=== PATIENT | male | born 1985 | race Two or more races ===

== ENCOUNTER 2019-01-09 10:29 | Outpatient (CLI) | payer BC ==
[2019-01-09] MEDS ORDERED: MELO15TA24 PO (11:00)
== END 2019-01-09 23:59 | disposition home or self-care (01) ==
LOC: STAR 10:29
PROVIDERS: ATTEND Orthopaedic Surgery
DX: Z02.9 Encounter for administrative examinations, unspecified (principal)

== ENCOUNTER 2019-01-24 06:26 | Day surgery (SDC) | payer BC ==
[~2019-01-24] VITALS: Ht 165.1 cm; Wt 87.0 kg
[~2019-01-24 06:26] MED LIST: MELO15TA24 PO
[2019-01-24] MEDS ORDERED: BUPIVACAINE/PF-EPI 0.5% 1:200K ONE (06:28)
[2019-01-24] MEDS ORDERED: LIDOCAINE 1%-EPI 1:100K, 30ML ONE (06:28)
[2019-01-24 06:45] VITALS: BP 134/87
[2019-01-24] MEDS ORDERED: LACTATED RINGERS 1,000 ML IV SCH (06:47)
[2019-01-24] MEDS ORDERED: MIDAZOLAM 1 MG/ML, 2ML ONE (06:58)
[2019-01-24] MEDS ORDERED: FENTANYL PF 100 MCG/2ML ONE ×2 (06:59→10:21)
[2019-01-24] MEDS ORDERED: MELOXICAM 15MG MC SCH (07:00)
[2019-01-24] MEDS ORDERED: MELOXICAM 15 MG PO SCH (07:00)
[2019-01-24] MEDS ORDERED: LIDOCAINE-MPF 2% ,5ML ONE (07:03)
[2019-01-24] MEDS ORDERED: BUPIVACAINE/PF 0.5% ONE (07:05)
[2019-01-24] MEDS ORDERED: ROCURONIUM 10 MG/ML,10ML ONE (08:19)
[2019-01-24] MEDS ORDERED: DEXAMETHASONE 4 MG/ML, 5ML ONE (08:19)
[2019-01-24] MEDS ORDERED: SUCCINYLCHOLINE 20 MG/ML, 10ML ONE (08:19)
[2019-01-24] MEDS ORDERED: CEFAZOLIN 1,000 MG ONE (08:56)
[2019-01-24] MEDS ORDERED: ONDANSETRON 2MG/ML, 2ML ONE (08:56)
[2019-01-24] MEDS ORDERED: PROPOFOL 10 MG/ML, 20ML ONE (08:56)
[2019-01-24] MEDS ORDERED: ONDANSETRON 2MG/ML, 2ML IV PRN (09:00)
[2019-01-24] MEDS ORDERED: HYDROmorphone 2 MG/ML, 1ML IVPush PRN (09:00)
[2019-01-24] MEDS ORDERED: hydrALAzine 20 MG/ML, 1ML IV PRN (09:00)
[2019-01-24] MEDS ORDERED: PROMETHAZINE 25 MG/ML, 1ML IV PRN (09:00)
[2019-01-24] MEDS ORDERED: ALBUTEROL/IPRATROPIUM 2.5MG/0.5MG, 3 ML NPPB PRN (09:00)
[2019-01-24] MEDS ORDERED: MIDAZOLAM 1 MG/ML, 2ML IV PRN (09:00)
[2019-01-24] MEDS ORDERED: MEPERIDINE/PF 25MG/0.5ML IVPush PRN (09:00)
[2019-01-24] MEDS ORDERED: SCOPOLAMINE PATCH, 1.5MG PATCH.TD72 TD PRN (09:00)
[2019-01-24] MEDS ORDERED: OXYcodone 5 MG/5 ML ORAL.SOL UDC PO PRN (09:00)
[2019-01-24] MEDS ORDERED: KETOROLAC 30 MG/1 ML IV PRN (09:00)
[2019-01-24] MEDS ORDERED: OXYcodone 5 MG/5 ML ORAL.SOL UDC ONE (10:21)
[2019-01-24] MEDS: FENTANYL PF 100 MCG/2ML IV PRN ×2 (10:25→10:35)
== END 2019-01-24 12:25 | disposition home or self-care (01) ==
LOC: OUT 06:26
PROVIDERS: ATTEND Orthopaedic Surgery
DX: S43.431A Superior glenoid labrum lesion of right shoulder, initial encounter (principal); M19.011 Primary osteoarthritis, right shoulder; M65.811 Other synovitis and tenosynovitis, right shoulder; M75.41 Impingement syndrome of right shoulder; M75.111 Incomplete rotator cuff tear or rupture of right shoulder, not specified as traumatic; X58.XXXA Exposure to other specified factors, initial encounter; Y93.89 Activity, other specified; Y92.89 Other specified places as the place of occurrence of the external cause; Y99.8 Other external cause status
CPT/HCPCS: 29823; 29824; 29826; 29827; 64415; C1713; J0330; J0690; J1100; J2250; J2405; J2704; J3010; J3490; J7120